=== PATIENT | female | born 1935 | race Caucasian/White ===

== ENCOUNTER 2016-08-21 18:27 | Observation (INO) | payer MEDICARE, OTHER ==
[2016-08-21] MEDS ORDERED: methylPREDNISolone Sodium Succinate 125 MG/2 ML SDV IVPUSH ONE (18:48)
[2016-08-21] MEDS ORDERED: Ketorolac 30 MG/ML SDV IVPUSH ONE (18:48)
--- NOTE | 2016-08-21 19:01 | EDM.PDOC ---
ED HPI GENERAL MEDICAL PROBLEM - General Chief Complaint: Back Pain or Injury Stated Complaint: PAIN LOW BACK/LT SIDE HIP Time Seen by Provider: 08/21/16 18:45 Source of Information: Reports: Patient History Limitations: Reports: No Limitations - History of Present Illness INITIAL COMMENTS - FREE TEXT/NARRATIVE: HISTORY AND PHYSICAL: History of present illness: [Patient comes to the emergency room complaining of low back pain. She has traveled to the area and a motor home from [place] to visit family. Yesterday she developed left-sided low back pain which has gradually worsened since its onset. Has radiation of pain from her left low back, down her left hip, to the front of her left lower leg. No weakness, numbness or tingling. Worse pain with weight bearing. She denies any falls and injuries. History of hypertension, type 2 diabetes, hyperlipidemia, osteoporosis and PMR for which she takes prednisone 5 mg daily. She denies fever and chills. No chest pain shortness of breath and difficulty breathing. No abdominal pain. No change in her normal urination or bowel movements. No episodes of incontinence of bowel or bladder. No swelling to her feet or lower legs. She's not had any weakness, numbness or tingling. Is planning to leave to go back home on August 24, which is a 4 day trip in a motor home.] Review of systems: As per history of present illness and below otherwise all systems reviewed and negative. Past medical history: As per history of present illness and as reviewed below otherwise noncontributory. Surgical history: As per history of present illness and as reviewed below otherwise noncontributory. Social history: No reported history of drug or alcohol abuse. Family history: As per history of present illness and as reviewed below otherwise noncontributory. Physical exam: HEENT: Atraumatic, normocephalic. Lungs: Clear to auscultation, breath sounds equal bilaterally. Heart: S1S2, regular rate and rhythm. Abdomen: Soft, nondistended, nontender. Pelvis: Stable nontender. Genitourinary: Deferred. Rectal: Deferred. Back: Tender with palpation over low back just left of midline, near left SI area. No suspicious appearing lesions or rashes. Negative straight leg raise. Patellar reflexes are 2+ on the right, 1+ on the left. Extremities: Atraumatic, negative for cords or calf pain. Neurovascular unremarkable. Neuro: Awake, alert, oriented. Motor and sensory unremarkable throughout. Exam nonfocal. Diagnostics: [Left hip x-ray, L/S x-ray, CBC, CMP] Therapeutics: [Toradol 15 mg IV, Solu-Medrol 125 mg IV, Norflex 60 mg IV, Dilaudid 0.5 mg IV] Impression: [low back pain] Plan: [Patient's pain is not controlled and she is offered inpatient admission. Discussed patient's condition with Dr. Hung John who agrees to accept patient for observation. She is in agreement with today's plan. ] Definitive disposition and diagnosis as appropriate pending reevaluation and review of above. lower back Pain Score (Numeric/FACES): 9 - Related Data Allergies Allergy/AdvReac Type Severity Reaction Status Date / Time fish oil Allergy Rash Verified 08/21/16 18:37 Home Meds: Home Meds Atenolol [Tenormin] 1 tab PO DAILY 08/21/16 [History] Calcium Carbonate [Calcium] 1 tab PO BID 08/21/16 [History] Docusate Sodium [Stool Softener] 1 cap PO DAILY 08/21/16 [History] Glucosamine/D3/Boswellia Isabel [Osteo Bi-Flex Tablet] 1 tab PO BID 08/21/16 [ History] Hydrochlorothiazide 12.5 mg PO DAILY 08/21/16 [History] Irbesartan 1 tab PO DAILY 08/21/16 [History] Naproxen 1 tab PO ASDIRECTED 08/21/16 [History] Omeprazole 20 mg PO DAILY 08/21/16 [History] Pravastatin [Pravachol] 20 mg PO DAILY 08/21/16 [History] Prednisone [IJD: Prednisone] 5 mg PO DAILY 08/21/16 [History] metFORMIN [Glucophage] 750 mg PO DAILY 08/21/16 [History] ED ROS GENERAL - Review of Systems Review Of Systems: ROS reveals no pertinent complaints other than HPI. ED EXAM,LOWER BACK PAIN/INJURY - Physical Exam Exam: See Below Course - Vital Signs Text/Narrative:: Patient's low back pain is improved to 6 out of 10 at rest following Dilaudid. Pain is 10 /10 with weightbearing. Last Recorded V/S: Last Vital Signs Temp 97.8 F 08/21/16 21:33 Pulse 75 08/21/16 21:33 Resp 18 08/21/16 21:33 BP 163/80 H 08/21/16 21:33 Pulse Ox 92 L 08/21/16 21:33 - Orders/Labs/Meds Orders: Active Orders 24 hr Category Date Time Status Patient Status [ADT] Stat ADT 08/21/16 21:33 Ordered Hip Min 2V or 3V Lt [CR] Stat Exams 08/21/16 19:18 Taken Lumbar Spine 2 or 3V [CR] Stat Exams 08/21/16 19:16 Taken CBC WITH AUTO DIFF [HEME] Stat Lab 08/21/16 21:32 Ordered COMPREHENSIVE METABOLIC PN,CMP [CHEM] Stat Lab 08/21/16 21:32 Ordered Ondansetron [Zofran] Med 08/21/16 20:25 Active 4 mg IVPUSH ONETIME PRN Medication Orders Ondansetron HCl (Zofran) 4 mg IVPUSH ONETIME PRN PRN Reason: Nausea Last Admin: 08/21/16 20:31 Dose: 4 mg Meds: Medications Generic Name Dose Route Start Last Admin Trade Name Freq PRN Reason Stop Dose Admin Ondansetron HCl 4 mg 08/21/16 20:25 08/21/16 20:31 Zofran IVPUSH 4 mg ONETIME PRN Administration Nausea Discontinued Medications Generic Name Dose Route Start Last Admin Trade Name Freq PRN Reason Stop Dose Admin Hydromorphone HCl 0.5 mg 08/21/16 20:24 08/21/16 20:31 Dilaudid IV 08/21/16 20:25 0.5 mg ONETIME ONE Administration Ketorolac Tromethamine 15 mg 08/21/16 18:48 08/21/16 19:07 Toradol IVPUSH 08/21/16 18:49 15 mg ONETIME ONE Administration Methylprednisolone Sodium Succinate 125 mg 08/21/16 18:48 08/21/16 19:07 Solu-Medrol IVPUSH 08/21/16 18:49 125 mg ONETIME ONE Administration Orphenadrine Citrate 60 mg 08/21/16 18:53 08/21/16 19:07 Norflex IV 08/21/16 18:54 60 mg ONETIME ONE Administration Departure - Departure Time of Disposition: 21:30 Disposition: Refer to Observation Condition: Good Clinical Impression: Low back pain radiating down leg - Discharge Information Forms: ED Department Discharge - My Orders Last 24 Hours: My Active Orders 08/21/16 19:16 Lumbar Spine 2 or 3V [CR] Stat 08/21/16 19:18 Hip Min 2V or 3V Lt [CR] Stat 08/21/16 20:25 Ondansetron [Zofran] 4 mg IVPUSH ONETIME PRN 08/21/16 21:32 CBC WITH AUTO DIFF [HEME] Stat COMPREHENSIVE METABOLIC PN,CMP [CHEM] Stat 08/21/16 21:33 Patient Status [ADT] Stat - Assessment/Plan Last 24 Hours: My Active Orders 08/21/16 19:16 Lumbar Spine 2 or 3V [CR] Stat 08/21/16 19:18 Hip Min 2V or 3V Lt [CR] Stat 08/21/16 20:25 Ondansetron [Zofran] 4 mg IVPUSH ONETIME PRN 08/21/16 21:32 CBC WITH AUTO DIFF [HEME] Stat COMPREHENSIVE METABOLIC PN,CMP [CHEM] Stat 08/21/16 21:33 Patient Status [ADT] Stat
[2016-08-21] MEDS ORDERED: HYDROmorphone 1 MG/ML Syringe IV ONE (20:24)
[2016-08-21] MEDS ORDERED: Ondansetron 4 MG/2 ML SDV IVPUSH PRN (20:25)
--- NOTE | 2016-08-21 22:37 | PCM.HP ---
H&P History of Present Illness - General Date of Service: 08/21/16 Admit Problem/Dx: Admission Diagnosis/Problem Admission Diagnosis/Problem Low back pain - History of Present Illness Initial Comments - Free Text/Narative: She is visiting from [place]. She just arrived by motor home. Yesterday she woke up with severe back pain such that she could not ambulate safely. She denies trauma. No fever . no urinary symptoms. No urinary or fecal incontinence. lower back Pain Score (Numeric/FACES): 9 - Related Data Allergies/Adverse Reactions: Allergies Allergy/AdvReac Type Severity Reaction Status Date / Time fish oil Allergy Rash Verified 08/21/16 18:37 Home Medications: Home Meds Atenolol [Tenormin] 1 tab PO DAILY 08/21/16 [History] Calcium Carbonate [Calcium] 1 tab PO BID 08/21/16 [History] Docusate Sodium [Stool Softener] 1 cap PO DAILY 08/21/16 [History] Glucosamine/D3/Boswellia Isabel [Osteo Bi-Flex Tablet] 1 tab PO BID 08/21/16 [ History] Hydrochlorothiazide 12.5 mg PO DAILY 08/21/16 [History] Irbesartan 1 tab PO DAILY 08/21/16 [History] Naproxen 1 tab PO ASDIRECTED 08/21/16 [History] Omeprazole 20 mg PO DAILY 08/21/16 [History] Pravastatin [Pravachol] 20 mg PO DAILY 08/21/16 [History] Prednisone [IJD: Prednisone] 5 mg PO DAILY 08/21/16 [History] metFORMIN [Glucophage] 750 mg PO DAILY 08/21/16 [History] Past Medical History HEENT History: Reports: None Cardiovascular History: Reports: Hypertension Respiratory History: Reports: None Gastrointestinal History: Reports: None Genitourinary History: Reports: None 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: Musculoskeletal History: Reports: Arthritis, Back Pain, Chronic Neurological History: Reports: None Psychiatric History: Reports: None Endocrine/Metabolic History: Reports: Diabetes, Type II Hematologic History: Reports: None Immunologic History: Reports: None, Other (See Below) (she has a history of polymyalgia rheumatica and is on daily prednisone 10 mg) Oncologic (Cancer) History: Reports: None Dermatologic History: Reports: None - Infectious Disease History Infectious Disease History: Reports: Chicken Pox, Measles, Mumps - Past Surgical History Head Surgeries/Procedures: Reports: None Female Surgical History: Reports: Breast Biopsy, Other (See Below) Other Female Surgeries/Procedures: Bladder lift - History Comment History Comment: family history is significant for factor V deficiency and thrombophilia in multiple family members Social & Family History - Family History Family Medical History: Noncontributory - Tobacco Use Smoking Status *Q: Never Smoker - Caffeine Use Caffeine Use: Reports: Coffee - Recreational Drug Use Recreational Drug Use: No H&P Review of Systems - Review of Systems: Review Of Systems: See Below General: Denies: Fever, Chills HEENT: Denies: Headaches, Sore Throat, Vertigo Pulmonary: Denies: Shortness of Breath, Cough, Sputum, Hemoptysis Cardiovascular: Denies: Chest Pain Gastrointestinal: Denies: Abdominal Pain, Anorexia, Black Stool, Hematemesis, Hematochezia, Stool Incontinence, Vomiting Genitourinary: Denies: Dysuria, Frequency, Hematuria Skin: Denies: Jaundice Psychiatric: Denies: Confusion Exam - Exam Exam: See Below - Vital Signs Vital Signs: Last Vital Signs Temp 97.8 F 08/21/16 21:33 Pulse 75 08/21/16 21:33 Resp 18 08/21/16 21:33 BP 163/80 H 08/21/16 21:33 Pulse Ox 92 L 08/21/16 21:33 Weight: 70.76 kg - Exam General: Alert, Oriented HEENT: EOMI Neck: Supple, Trachea Midline Lungs: Clear to Auscultation, Normal Respiratory Effort Cardiovascular: Regular Rate, Regular Rhythm Abdomen: Soft. No: Distention (Female) Exam: Deferred Rectal (Female) Exam: Deferred Extremities: Other (negative straight leg raise test; possible slight tenderness in the area of the left medial leg; no detectable edema LE's ). No: Edema Neurological: Cranial Nerves Intact, Normal Speech Neuro Extensive - Mental Status: Normal Mood/Affect Neuro Extensive - Motor, Sensory, Reflexes: CN II-XII Intact. No: Facial palsy (L), Facial Palsy (R), Hemeplagia (R), Hemeplagia (L) Psychiatric: Alert, Normal Affect. No: Agitated - Patient Data Lab Results Last 24 hrs: Laboratory Results - last 24 hr 08/21/16 08/21/16 Range/Units 21:42 21:42 WBC 10.19 (4.0-11.0) K/uL RBC 4.40 (4.30-5.90) M/uL Hgb 13.5 (12.0-16.0) g/dL Hct 40.3 (36.0-46.0) % MCV 91.6 (80.0-98.0) fL MCH 30.7 (27.0-32.0) pg MCHC 33.5 (31.0-37.0) g/dL RDW Std Deviation 45.3 (28.0-62.0) fl RDW Coeff of Rebeca 14 (11.0-15.0) % Plt Count 300 (150-400) K/uL MPV 9.70 (7.40-12.00) fL Neut % (Auto) 87.0 H (48.0-80.0) % Lymph % (Auto) 11.1 L (16.0-40.0) % [place] % (Auto) 1.4 (0.0-15.0) % Eos % (Auto) 0.3 (0.0-7.0) % Baso % (Auto) 0.2 (0.0-1.5) % Neut # (Auto) 8.9 H (1.4-5.7) K/uL Lymph # (Auto) 1.1 (0.6-2.4) K/uL [place] # (Auto) 0.1 (0.0-0.8) K/uL Eos # (Auto) 0.0 (0.0-0.7) K/uL Baso # (Auto) 0.0 (0.0-0.1) K/uL Nucleated RBC % 0.0 /100WBC Nucleated RBCs # 0 K/uL Sodium 141 (136-146) mmol/L Potassium 4.9 (3.5-5.1) mmol/L Chloride 109 (98-110) mmol/L Carbon Dioxide 19 L (21-31) mmol/L BUN 24 H (6.0-23.0) mg/dL Creatinine 1.1 (0.6-1.5) mg/dL Est Cr Clr Drug Dosing 30.28 mL/min Estimated GFR (MDRD) 48.0 ml/min Glucose 157 H (60-110) mg/dL Calcium 9.1 (8.8-10.8) mg/dL Total Bilirubin 0.3 (0.1-1.5) mg/dL AST 22 (5-40) IU/L ALT 26 (8-54) IU/L Alkaline Phosphatase 75 (40-150) Total Protein 8.0 (6.0-8.0) g/dL Albumin 4.1 (3.4-4.8) g/dL Globulin 3.9 H (2.0-3.5) g/dL Albumin/Globulin Ratio 1.1 L (1.3-2.8) Result Diagrams: 08/21/16 21:42 08/21/16 21:42 *Q Meaningful Use (ADM) - VTE *Q VTE Criteria *Q: - Stroke *Q Stroke Criteria *Q: - AMI *Q AMI Criteria *Q: - Problem List (1) Diabetes mellitus SNOMED Code(s): 47989226 ICD Code: E11.9 - TYPE 2 DIABETES MELLITUS WITHOUT COMPLICATIONS Status: Acute Current Visit: Yes (2) Hypertension SNOMED Code(s): 05817539 ICD Code: I10 - ESSENTIAL (PRIMARY) HYPERTENSION Status: Acute Current Visit: Yes (3) Polymyalgia rheumatica SNOMED Code(s): 15060731 ICD Code: M35.3 - POLYMYALGIA RHEUMATICA Status: Acute Current Visit: Yes Problem List Initiated/Reviewed/Updated: Yes Orders Last 24hrs: Medication Orders Ondansetron HCl (Zofran) 4 mg IVPUSH ONETIME PRN PRN Reason: Nausea Last Admin: 08/21/16 20:31 Dose: 4 mg Assessment/Plan Comment:: She has some slight left leg radiation but negative straight leg raise test back exam as per [facility] Will work on pain control check blood sugar in am in am check D dimer and venous doppler ultrasound both LE's in light of family history of thrombophilia PT consult in am analgesics received solumedrol in ED Hung John MD
[2016-08-21] MEDS ORDERED: Morphine 4 MG/ML Syringe IVPUSH PRN (22:50)
[2016-08-21] MEDS ORDERED: Bisacodyl 5 MG Tab PO PRN (22:50)
[2016-08-21] MEDS ORDERED: Temazepam 15 MG Cap PO PRN (22:50)
[2016-08-21] MEDS ORDERED: Docusate Sodium 100 MG Cap PO SCH (23:00)
[2016-08-21] MEDS ORDERED: metFORMIN 500 MG Tab PO SCH (23:00)
[2016-08-21] MEDS ORDERED: GLUCOSAMINE PO SCH (23:00)
[2016-08-21] MEDS ORDERED: [UNRECOGNIZED DRUG - OTHER] PO SCH (23:00)
[2016-08-21] MEDS ORDERED: Naproxen 500 MG Tab PO SCH (23:00)
[2016-08-21] MEDS ORDERED: Atenolol 25 MG Tab PO SCH (23:00)
[2016-08-21] MEDS ORDERED: BOSWELLIA SERRA T PO SCH (23:00)
[2016-08-21] MEDS ORDERED: D3 PO SCH (23:00)
[2016-08-21] MEDS ORDERED: Irbesartan 150 MG Tab PO SCH (23:00)
[2016-08-21] MEDS ORDERED: Hydrochlorothiazide 12.5 MG Cap PO SCH (23:00)
[2016-08-21] MEDS: Pravastatin 40 MG Tab PO SCH (23:12)
[2016-08-21] MEDS: Omeprazole 20 MG Cap.CR PO SCH (23:12)
[2016-08-21] MEDS: Calcium Carbonate 500 MG Tablet PO SCH (23:39)
[2016-08-21] MEDS: oxyCODONE 5 MG Tab PO PRN (23:40)
[2016-08-21] MEDS: Enoxaparin 40 MG/0.4 ML Syringe SUBCUT SCH (23:42)
[2016-08-22] MEDS ORDERED: Naproxen 500 MG Tab PO PRN (01:20)
[2016-08-22] MEDS: oxyCODONE 5 MG Tab PO PRN (04:18)
[2016-08-22] MEDS: Ondansetron 4 MG Tab.DIS PO PRN ×2 (04:18→08:14)
[2016-08-22] MEDS ORDERED: Insulin Regular, Human 100 Units/ML 10 ML Vial SUBCUT ONE (06:30)
[2016-08-22] MEDS: Calcium Carbonate 500 MG Tablet PO SCH (08:05)
[2016-08-22] MEDS: Pravastatin 40 MG Tab PO SCH (08:06)
[2016-08-22] MEDS: Omeprazole 20 MG Cap.CR PO SCH (08:06)
[2016-08-22] MEDS: Enoxaparin 40 MG/0.4 ML Syringe SUBCUT SCH (08:07)
[2016-08-22] MEDS ORDERED: Acetaminophen/HYDROcodone 325-5 MG Tab PO PRN (08:44)
[2016-08-22] MEDS ORDERED: Docusate Sodium 100 MG Cap PO SCH (09:00)
[2016-08-22] MEDS ORDERED: predniSONE 5 MG Tab PO SCH (09:00)
--- NOTE | 2016-08-22 09:28 | US ---
ULTRASOUND EXAMINATION OF the right and left lower extremities WITH DOPPLER HISTORY: Family history of Thrombophilia FINDINGS: Examination of the right and left legs were performed from the groin to the calf region. All visual ized segments including common femoral, proximal greater saphenous, superficial femoral, popliteal a nd calf veins appear patent with good compressibility and augmentation. There is no evidence of bal p vein thrombosis. IMPRESSION: No evidence of a DVT.
--- NOTE | 2016-08-22 10:20 | PCM.DCSUM1 ---
Discharge Summary - Hospital Course Brief History: This 80 year old female with pmh HTN, DM type 2, and PMR presented to the ED yesterday with severe back pain such that she could not ambulate safely. She is visiting from [place] and just arrived by motor home. The day prior to admission she woke up with severe back pain which radiated to her L thigh. It was worse with ambulation. and nothing seemed to make it better. She denies trauma. No fever. No urinary symptoms. No urinary or fecal incontinence. Denied chest pain or palpitaions or SOB. Her plan is to head back to [place] via motor home on August 24. [address] not [address]. - Discharge Data Discharge Date: 08/22/16 Discharge Disposition: Home, Self-Care 01 Condition: Good - Discharge Diagnosis/Problem(s) (1) Low back pain radiating down leg SNOMED Code(s): 166876484, [id number], 743867312 ICD Code: M54.5 - LOW BACK PAIN Status: Acute Current Visit: Yes (2) Diabetes mellitus SNOMED Code(s): 94416909 ICD Code: E11.9 - TYPE 2 DIABETES MELLITUS WITHOUT COMPLICATIONS Status: Chronic Current Visit: Yes Qualifiers: Diabetes mellitus type: type 2 Diabetes mellitus complication status: without complication (3) Hypertension SNOMED Code(s): 47760843 ICD Code: I10 - ESSENTIAL (PRIMARY) HYPERTENSION Status: Chronic Current Visit: Yes Qualifiers: Hypertension type: essential hypertension Qualified Code(s): I10 - Essential (primary) hypertension (4) Polymyalgia rheumatica SNOMED Code(s): 77858556 ICD Code: M35.3 - POLYMYALGIA RHEUMATICA Status: Chronic Current Visit: Yes - Patient Summary/Data Consults: Consultations 08/22/16 08:00 PT Evaluation and Treatment [CONS] Routine - Patient Instructions Diet: Usual Diet as Tolerated, Diabetic Diet Activity: No Strenuous Activities Activity, Other: continue with stretching from PT, keeping moving, ICE to low back as needed Driving: Do Not Drive Showering/Bathing: May Shower Notify Provider of: Fever, Increased Pain, Swelling and Redness, Drainage, Nausea and/or Vomiting - Discharge Plan Prescriptions/Med Rec: Acetaminophen [Tylenol] 650 mg PO Q6H #90 tablet Home Medications: Home Meds Atenolol [Tenormin] 25 mg PO BEDTIME 08/21/16 [History] Calcium Carbonate [Calcium] 600 mg PO BID 08/21/16 [History] Docusate Sodium [Stool Softener] 100 mg PO BEDTIME 08/21/16 [History] Glucosamine/D3/Boswellia Isabel [Osteo Bi-Flex Tablet] 1 tab PO BID 08/21/16 [ History] Hydrochlorothiazide 12.5 mg PO BEDTIME 08/21/16 [History] Irbesartan 300 mg PO BEDTIME 08/21/16 [History] Omeprazole 20 mg PO DAILY 08/21/16 [History] Pravastatin [Pravachol] 20 mg PO BEDTIME 08/21/16 [History] Prednisone [IJD: Prednisone] 5 mg PO DAILY 08/21/16 [History] Acetaminophen [Tylenol] 650 mg PO Q6H #90 tablet 08/22/16 [Rx] Naproxen 500 mg PO Q12H PRN #0 08/22/16 [Rx] metFORMIN [Glucophage XR] 750 mg PO BEDTIME 08/22/16 [History] Patient Handouts: Sciatica, Acetaminophen tablets or caplets Referrals: PCP,None [Primary Care Provider] - (Follow up with PCP in home town or return to nearest ED.) - Discharge Summary/Plan Comment DC Time >30 min.: No Discharge Summary/Plan Comment: Discharge Diagnoses: Left SI joint/low back pain HTN DM type 2 PMR Dara was admitted and treated with Oxycodone, Naproxen and Tylenol. This morning she felt alden oxycodone made her very uneasy feeling and did not want it anymore. She was evaluated by PT and did stretching. She reports after visiting with PT and doing those stretches she feels "a lot better" She was able to ambulate to the bathroom with little assist, and with a walker. She does not have a walker at home, but has a cane with her on the motor home and will use that. She has some remaining tenderness to L SI joint, but has no further radiating of sharp pains to her L left with ambulating. She would prefer to take Ibuprofen or Tylenol for pain. She was encouraged to continue stretches as per PT and ambulate often during ride back home. She has a family history of thrombophilia and D dimer was slightly elevated on admission. Venous doppler of ower extremities was negative. Wells score low probability for PE, and will pass on obtaining CT angio and patient agrees with this, she declines wanting a CT, because" I have no troubles breathing." I again encouraged frequently ambulation on trip back home. She is to return to ED or clinic if concerns should arise and follow up with PCP back at home in [place]. - General Info Date of Service: 08/22/16 Admission Dx/Problem (Free Text: Admission Diagnosis/Problem Admission Diagnosis/Problem Low back pain Subjective Update: Feeling a lot better this morning after PT was in and helped with stretching. She is requesting to go home and does not want any narcotics, she is ok with ICE tylenol and Ibuprofen. - Review of Systems General: Reports: No Symptoms. Denies: Fever, Weakness, Fatigue HEENT: Reports: no symptoms Pulmonary: Reports: no symptoms. Denies: shortness of breath, pleuritic chest pain, cough, sputum, hemoptysis Cardiovascular: Reports: No Symptoms. Denies: Chest Pain, Edema Gastrointestinal: Reports: No symptoms. Denies: Abdominal pain, Nausea, Vomiting Genitourinary: Reports: no symptoms. Denies: dysuria, frequency, burning Musculoskeletal: Reports: back pain (low back pain, left of midline.) - Patient Data Vitals - Most Recent: Last Vital Signs Temp 98.1 F 08/22/16 04:00 Pulse 79 08/22/16 04:00 Resp 17 08/22/16 04:00 BP 149/69 H 08/22/16 04:00 Pulse Ox 94 L 08/22/16 04:00 Weight - Most Recent: 70.76 kg I&O - Last 24 hours: Intake & Output 08/21/16 08/22/16 08/22/16 22:59 06:59 14:59 Intake Total 890 Output Total 400 Balance 490 Lab Results - Last 24 hrs: Laboratory Results - last 24 hr 08/21/16 08/21/16 08/22/16 Range/Units 21:42 21:42 04:35 WBC 10.19 (4.0-11.0) K/uL RBC 4.40 (4.30-5.90) M/uL Hgb 13.5 (12.0-16.0) g/dL Hct 40.3 (36.0-46.0) % MCV 91.6 (80.0-98.0) fL MCH 30.7 (27.0-32.0) pg MCHC 33.5 (31.0-37.0) g/dL RDW Std Deviation 45.3 (28.0-62.0) fl RDW Coeff of Rebeca 14 (11.0-15.0) % Plt Count 300 (150-400) K/uL MPV 9.70 (7.40-12.00) fL Neut % (Auto) 87.0 H (48.0-80.0) % Lymph % (Auto) 11.1 L (16.0-40.0) % [place] % (Auto) 1.4 (0.0-15.0) % Eos % (Auto) 0.3 (0.0-7.0) % Baso % (Auto) 0.2 (0.0-1.5) % Neut # (Auto) 8.9 H (1.4-5.7) K/uL Lymph # (Auto) 1.1 (0.6-2.4) K/uL [place] # (Auto) 0.1 (0.0-0.8) K/uL Eos # (Auto) 0.0 (0.0-0.7) K/uL Baso # (Auto) 0.0 (0.0-0.1) K/uL Nucleated RBC % 0.0 /100WBC Nucleated RBCs # 0 K/uL D-Dimer, Quantitative (0.0-0.52) mg/LFEU Sodium 141 (136-146) mmol/L Potassium 4.9 (3.5-5.1) mmol/L Chloride 109 (98-110) mmol/L Carbon Dioxide 19 L (21-31) mmol/L BUN 24 H (6.0-23.0) mg/dL Creatinine 1.1 (0.6-1.5) mg/dL Est Cr Clr Drug Dosing 30.28 mL/min Estimated GFR (MDRD) 48.0 ml/min Glucose 157 H (60-110) mg/dL POC Glucose (60-110) mg/dL Calcium 9.1 (8.8-10.8) mg/dL Magnesium (1.5-2.3) mEq/L Total Bilirubin 0.3 (0.1-1.5) mg/dL AST 22 (5-40) IU/L ALT 26 (8-54) IU/L Alkaline Phosphatase 75 (40-150) Total Protein 8.0 (6.0-8.0) g/dL Albumin 4.1 (3.4-4.8) g/dL Globulin 3.9 H (2.0-3.5) g/dL Albumin/Globulin Ratio 1.1 L (1.3-2.8) Urine Color YELLOW Urine Appearance HAZY Urine pH 5.0 (5.0-8.0) Ur Specific [place] 1.025 (1.001-1.035) Urine Protein NEGATIVE (NEGATIVE) mg/dL Urine Glucose (UA) 250 H (NEGATIVE) mg/dL Urine Ketones NEGATIVE (NEGATIVE) mg/dL Urine Occult Blood NEGATIVE (NEGATIVE) Urine Nitrite NEGATIVE (NEGATIVE) Urine Bilirubin NEGATIVE (NEGATIVE) Urine Urobilinogen 0.2 (<2.0) EU/dL Ur Leukocyte Esterase TRACE (NEGATIVE) Urine RBC 0-2 (0-2/HPF) Urine WBC 3-5 (0-5/HPF) Ur Epithelial Cells FEW (NONE-FEW) Ur Renal Epithelial Cell OCCASIONAL Urine Bacteria FEW (NEGATIVE) 08/22/16 08/22/16 08/22/16 Range/Units 06:00 06:00 06:13 WBC (4.0-11.0) K/uL RBC (4.30-5.90) M/uL Hgb (12.0-16.0) g/dL Hct (36.0-46.0) % MCV (80.0-98.0) fL MCH (27.0-32.0) pg MCHC (31.0-37.0) g/dL RDW Std Deviation (28.0-62.0) fl RDW Coeff of Rebeca (11.0-15.0) % Plt Count (150-400) K/uL MPV (7.40-12.00) fL Neut % (Auto) (48.0-80.0) % Lymph % (Auto) (16.0-40.0) % [place] % (Auto) (0.0-15.0) % Eos % (Auto) (0.0-7.0) % Baso % (Auto) (0.0-1.5) % Neut # (Auto) (1.4-5.7) K/uL Lymph # (Auto) (0.6-2.4) K/uL [place] # (Auto) (0.0-0.8) K/uL Eos # (Auto) (0.0-0.7) K/uL Baso # (Auto) (0.0-0.1) K/uL Nucleated RBC % /100WBC Nucleated RBCs # K/uL D-Dimer, Quantitative 1.28 H (0.0-0.52) mg/LFEU Sodium (136-146) mmol/L Potassium (3.5-5.1) mmol/L Chloride (98-110) mmol/L Carbon Dioxide (21-31) mmol/L BUN (6.0-23.0) mg/dL Creatinine (0.6-1.5) mg/dL Est Cr Clr Drug Dosing mL/min Estimated GFR (MDRD) ml/min Glucose (60-110) mg/dL POC Glucose 241 H (60-110) mg/dL Calcium (8.8-10.8) mg/dL Magnesium 1.7 (1.5-2.3) mEq/L Total Bilirubin (0.1-1.5) mg/dL AST (5-40) IU/L ALT (8-54) IU/L Alkaline Phosphatase (40-150) Total Protein (6.0-8.0) g/dL Albumin (3.4-4.8) g/dL Globulin (2.0-3.5) g/dL Albumin/Globulin Ratio (1.3-2.8) Urine Color Urine Appearance Urine pH (5.0-8.0) Ur Specific [place] (1.001-1.035) Urine Protein (NEGATIVE) mg/dL Urine Glucose (UA) (NEGATIVE) mg/dL Urine Ketones (NEGATIVE) mg/dL Urine Occult Blood (NEGATIVE) Urine Nitrite (NEGATIVE) Urine Bilirubin (NEGATIVE) Urine Urobilinogen (<2.0) EU/dL Ur Leukocyte Esterase (NEGATIVE) Urine RBC (0-2/HPF) Urine WBC (0-5/HPF) Ur Epithelial Cells (NONE-FEW) Ur Renal Epithelial Cell Urine Bacteria (NEGATIVE) Med Orders - Current: Current Medications Hydrocodone Bitart/Acetaminophen ([place] 325-5 Mg) 1 tab PO Q3H PRN PRN Reason: Pain Atenolol (Tenormin) 25 mg PO Q24H [facility] Last Admin: 08/21/16 23:39 Dose: 25 mg Bisacodyl (Dulcolax) 5 mg PO DAILY PRN PRN Reason: Constipation Calcium Carbonate/Glycine (Oyster [place] Calcium) 500 mg PO BID [facility] Last Admin: 08/22/16 08:05 Dose: 500 mg Docusate Sodium (Colace) 100 mg PO BID [facility] Last Admin: 08/22/16 09:26 Dose: 100 mg Enoxaparin Sodium (Lovenox) 40 mg SUBCUT DAILY [facility] Last Admin: 08/22/16 08:07 Dose: 40 mg Hydrochlorothiazide (Hydrochlorothiazide) 12.5 mg PO BEDTIME [facility] Last Admin: 08/21/16 23:38 Dose: 12.5 mg Irbesartan (Avapro) 150 mg PO BEDTIME [facility] Last Admin: 08/21/16 23:39 Dose: 150 mg Metformin HCl (Glucophage) 750 mg PO BEDTIME [facility] Last Admin: 08/21/16 23:39 Dose: 750 mg Metformin HCl (Glucophage) 750 mg PO BEDTIME [facility] Morphine Sulfate (Morphine) 4 mg IVPUSH Q2H PRN PRN Reason: Pain (severe 7-10) Stop: 08/22/16 22:51 Naproxen (Naprosyn) 500 mg PO Q6H PRN PRN Reason: Pain Omeprazole (Omeprazole) 20 mg PO DAILY [facility] Last Admin: 08/22/16 08:06 Dose: 20 mg Ondansetron HCl (Zofran) 4 mg IVPUSH ONETIME PRN PRN Reason: Nausea Last Admin: 08/21/16 20:31 Dose: 4 mg Ondansetron HCl (Zofran Odt) 4 mg PO Q4H PRN PRN Reason: nausea, able to take PO Last Admin: 08/22/16 08:14 Dose: 4 mg Pravastatin Sodium (Pravachol) 20 mg PO DAILY [facility] Last Admin: 08/22/16 08:06 Dose: 20 mg Prednisone (Prednisone) 5 mg PO DAILY [facility] Last Admin: 08/22/16 08:05 Dose: 5 mg Temazepam (Restoril) 15 mg PO BEDTIME PRN PRN Reason: Sleep Discontinued Medications Docusate Sodium (Colace) 100 mg PO BEDTIME [facility] Last Admin: 08/21/16 23:36 Dose: 100 mg Hydromorphone HCl (Dilaudid) 0.5 mg IV ONETIME ONE Stop: 08/21/16 20:25 Last Admin: 08/21/16 20:31 Dose: 0.5 mg Insulin Human Regular (Novolin R) 5 unit SUBCUT ONETIME ONE Stop: 08/22/16 06:31 Last Admin: 08/22/16 07:41 Dose: 5 units Ketorolac Tromethamine (Toradol) 15 mg IVPUSH ONETIME ONE Stop: 08/21/16 18:49 Last Admin: 08/21/16 19:07 Dose: 15 mg Methylprednisolone Sodium Succinate (Solu-Medrol) 125 mg IVPUSH ONETIME ONE Stop: 08/21/16 18:49 Last Admin: 08/21/16 19:07 Dose: 125 mg Naproxen (Naprosyn) mg PO ASDIRECTED [facility] Non-Formulary Medication (Glucosamine/D3/Boswellia Isabel [Osteo Bi-Flex Tablet] ) 1 tab PO BID [facility] Last Admin: 08/22/16 07:45 Dose: Not Given Orphenadrine Citrate (Norflex) 60 mg IV ONETIME ONE Stop: 08/21/16 18:54 Last Admin: 08/21/16 19:07 Dose: 60 mg Oxycodone HCl (Oxycodone) 10 mg PO Q4H PRN PRN Reason: Pain (moderate 4-6) Last Admin: 08/22/16 04:18 Dose: 10 mg - Exam General: Reports: alert, oriented, cooperative, no acute distress Neck: Reports: supple Lungs: Reports: Clear to auscultation, Normal respiratory effort Cardiovascular: Reports: Regular Rate, Regular Rhythm, No Murmurs. Denies: Bradycardia, Tachycardia, Murmurs Back Exam: Reports: Normal Inspection, Full Range of Motion, Other (tenderness over L SI joint, has improved and is able to walk without assistance. ). Denies : Paraspinal Tenderness, Vertebral Tenderness Extremities: Reports: no edema, normal pulses Skin: Reports: warm, dry, intact Wound/Incisions: Reports: healing well Neurological: Reports: no new focal deficit, strength equal bilateral, reflexes equal bilateral Psy/Mental Status: Reports: alert, normal affect, normal mood *Q Meaningful Use (DIS) - VTE *Q VTE Criteria *Q: - Stroke *Q Stroke Criteria *Q: - AMI *Q AMI Criteria *Q:
--- NOTE | 2016-08-22 13:24 | CR ---
EXAM DATE: 08/21/16 PATIENT'S AGE: 80 Patient: KRISTIAN DAILY Facility: [place], [place] Site . Site : 1935 Study: XRay Spine Lumbar [id number]/25/2017 7:46:56 PM Ordering Physician: Doctor No Final Report: INDICATION: Low back pain, hip pain. TECHNIQUE: Lumbar spine radiograph 3 view COMPARISON: None FINDINGS: There are 5 lumbar vertebral bodies. No compression fracture. Mild disk space narrowing at L4-L5 and L5-S1 levels with superimposed facet hypertrophic changes , most significant at L5-S1. Sacroiliac joints unremarkable. No suspicious osseous lesions are IMPRESSION: 1. No acute fracture or lumbar spine malalignment. Degenerative disk disease in the lower lumbar spine, most significant at L5-S1. Facet degenerative changes likely contribute to foraminal narrowing at the L5-S1 level. Dictated by Hung Ortiz MD @ 08/21/2016 8:09:16 PM Dictated by: Hung Ortiz MD @ 08/21/2016 20:09:21 (Electronic Signature) Report Signed by Proxy. [facility]
--- NOTE | 2016-08-22 13:24 | CR ---
EXAM DATE: 08/21/16 PATIENT'S AGE: 80 Patient: KRISTIAN DAILY Facility: [place], [place] Site . Site : 1935 Study: XRay Hip Left [id number]/25/2017 7:46:20 PM Ordering Physician: Doctor No Final Report: INDICATION: Left leg pain, low back pain. TECHNIQUE: Hip radiographs 2 views COMPARISON: None FINDINGS: Bones: Alignment is normal. No acute fractures or aggressive osseous lesions seen. Joint spaces: Moderate degenerative changes of the left hip with joint space narrowing. Soft tissues: Unremarkable. No radiopaque foreign bodies are noted. IMPRESSION: 1. No acute osseous injury to the left hip. Dictated by Hung Ortiz MD @ 08/21/2016 8:06:02 PM Dictated by: Hung Ortiz MD @ 08/21/2016 20:06:05 (Electronic Signature) Report Signed by Proxy. [facility]ANA
[2016-08-22 13:53] VITALS: BP 149/67
[2016-08-22] MEDS ORDERED: metFORMIN 500 MG Tab PO SCH (21:00)
== END 2016-08-22 13:30 | disposition home or self-care (01) ==
LOC: MW.ED 18:27 → MW.MS 21:33
PROVIDERS: ADMIT Family Medicine; ATTEND Family Medicine
DX: M54.5 Low back pain (principal); E11.9 Type 2 diabetes mellitus without complications; I10 Essential (primary) hypertension; M35.3 Polymyalgia rheumatica; Z79.84 Long term (current) use of oral hypoglycemic drugs; Z79.899 Other long term (current) drug therapy; Z98.890 Other specified postprocedural states; Z83.2 Family history of diseases of the blood and blood-forming organs and certain disorders involving the immune mechanism
CPT/HCPCS: 36415; 72100; 73502; 80053; 81001; 82962; 83735; 85025; 85379; 93970; 96372; 96374; 96375; 97116; 97162; 99284; A9270; G0378; J1170; J1650; J1815; J1885; J2360; J2405; J2930